=== PATIENT | male | born 1955 | race Caucasian/White ===

== ENCOUNTER 2020-06-17 13:07 | Outpatient (REF) | payer MEDICARE, OTHER, SELFPAY ==
[2020-06-17 14:19] LABS: Hematocrit 45.3 % (42-52); Hemoglobin 14.7 g/dl (14.0-18.0); Mean Corpuscular HGB Conc 32.5 g/dl (31.0-36.0); Mean Corpuscular Hemoglobin 30.7 pg (27.0-33.0); Mean Corpuscular Volume 94.6 fL (80-98); Mean Platelet Volume 9.6 fL (9.4-12.4); Platelet Count 186 X10*3/uL (160-400); Red Blood Count 4.79 X10*6/uL (4.60-5.80); Red Cell Distribution Width 12.6 % (11.0-16.0); White Blood Count 6.5 X10*3/uL (4.8-10.8)
[2020-06-17 14:57] LABS: Alanine Aminotransferase 18 U/L (0-40); Alkaline Phosphatase 77 U/L (39-117); Anion Gap 15 (12-20); Aspartate Amino Transferase 19 U/L (5-37); Bilirubin Direct 0.2 mg/dL (0.0-0.5); Bilirubin Total 0.6 mg/dL (0.0-1.0); Blood Urea Nitrogen 24 mg/dL (9-16); Calcium 8.4 mg/dL (8.4-10.2); Carbon Dioxide 22 mmol/L (22-29); Chloride 106 mmol/L (96-108); Cholesterol 170 mg/dL; Estimated Glomerular Filt Rate > 60; Glucose Random 70 mg/dL (60-115); HDL Cholesterol 43 mg/dL; LDL Cholesterol Calculated 79 mg/dl; Potassium 4.3 mmol/l (3.3-5.1); Sodium 139 mmol/L (135-145); Total Protein 7.1 g/dL (6.5-8.0); Triglycerides 242 mg/dL
[2020-06-17 14:59] LABS: Estimated Average Glucose 123 mg/dL; Hemoglobin A1c % 5.9 %
[2020-06-17 15:04] LABS: Thyroid Stimulating Hormone 2.65 uIU/mL (0.32-4.0)
[2020-06-17 15:28] LABS: Folate 14.8 ng/mL (> or = 4.0); Vitamin B12 489 pg/mL (200-900)
[2020-06-20 21:37] LABS: Vitamin D 25-OH, D2 <4 ng/mL; Vitamin D 25-OH, D3 23 ng/mL; Vitamin D 25-OH, Total 23 ng/mL (30-100)
== END 2020-06-17 13:08 | disposition home or self-care (01) ==
LOC: HO.LAB 13:07
PROVIDERS: Visit Provider Internal Medicine
DX: E11.9 Type 2 diabetes mellitus without complications (principal)
CPT/HCPCS: 36415; 80048; 80061; 80076; 82306; 82607; 82746; 83036; 84443; 85027

== ENCOUNTER 2021-05-31 09:14 | Outpatient (REF) | payer MEDICARE, OTHER, SELFPAY ==
[2021-05-31 09:52] LABS: Estimated Average Glucose 126 mg/dL
[2021-05-31 09:58] LABS: Appearance Urine CLEAR; Color Urine YELLOW; Glucose Urine UA NEG (NEG); Leukocyte Esterase Urine NEG (NEG); Nitrite Urine NEG (NEG); PH 5.5 (5.0-8.0); Specific Gravity - Urine 1.025 (1.005-1.025); Urine Blood NEG (NEG); Urine Ketones NEG (NEG); Urine Protein NEG (NEG-TRACE)
[2021-05-31 10:30] LABS: Alanine Aminotransferase 23 U/L (0-40); Albumin Level 3.9 g/dL (3.5-5.0); Alkaline Phosphatase 70 U/L (39-117); Anion Gap 9 (12-20); Aspartate Amino Transferase 16 U/L (5-37); Bilirubin Direct 0.3 mg/dL (0.0-0.5); Bilirubin Total 0.5 mg/dL (0.0-1.0); Blood Urea Nitrogen 23 mg/dL (9-16); Calcium 9.1 mg/dL (8.4-10.2); Carbon Dioxide 29 mmol/L (22-29); Chloride 107 mmol/L (96-108); Cholesterol 177 mg/dL; Estimated Glomerular Filt Rate > 60; Glucose Random 126 mg/dL (60-115); HDL Cholesterol 45 mg/dL; LDL Cholesterol Calculated 100 mg/dl; Potassium 4.8 mmol/L (3.3-5.1); Sodium 140 mmol/L (135-145); Total Protein 7.1 g/dL (6.5-8.0); Triglycerides 162 mg/dL
[2021-05-31 10:35] LABS: Creatinine Urine 215.46 mg/dL; Microalbum/Creatinine Ratio Ur 8.8 ug/mg cr
[2021-05-31 10:44] LABS: Thyroid Stimulating Hormone 2.45 uIU/mL (0.32-4.0)
== END 2021-05-31 09:15 | disposition home or self-care (01) ==
LOC: HO.LAB 09:14
PROVIDERS: PCP Internal Medicine; Visit Provider Internal Medicine
DX: E11.9 Type 2 diabetes mellitus without complications (principal); F41.1 Generalized anxiety disorder
CPT/HCPCS: 36415; 80048; 80061; 80076; 81003; 82043; 83036; 84443

== ENCOUNTER 2021-11-30 08:40 | Outpatient (REF) | payer MEDICARE, OTHER, SELFPAY ==
[2021-11-30 09:33] LABS: Hematocrit 43.5 % (42.0-52.0); Hemoglobin 14.2 g/dl (14.0-18.0); Mean Corpuscular HGB Conc 32.6 g/dl (31.0-36.0); Mean Corpuscular Hemoglobin 30.1 pg (27.0-33.0); Mean Corpuscular Volume 92.4 fL (80.0-98.0); Mean Platelet Volume 9.4 fL (9.4-12.4); Platelet Count 174 X10*3/uL (160-400); Red Blood Count 4.71 X10*6/uL (4.60-5.80); Red Cell Distribution Width 12.6 % (11.0-16.0); White Blood Count 6.2 X10*3/uL (4.8-10.8)
[2021-11-30 10:09] LABS: Alanine Aminotransferase 19 U/L (0-40); Albumin Level 3.8 g/dL (3.5-5.0); Alkaline Phosphatase 72 U/L (39-117); Anion Gap 11 (12-20); Aspartate Amino Transferase 17 U/L (5-37); Bilirubin Direct 0.2 mg/dL (0.0-0.5); Bilirubin Total 0.4 mg/dL (0.0-1.0); Blood Urea Nitrogen 22 mg/dL (9-16); Calcium 8.1 mg/dL (8.4-10.2); Carbon Dioxide 22 mmol/L (22-29); Chloride 111 mmol/L (96-108); Cholesterol 153 mg/dL; Estimated Glomerular Filt Rate > 60; Glucose Random 114 mg/dL (60-115); HDL Cholesterol 43 mg/dL; LDL Cholesterol Calculated 89 mg/dl; Potassium 4.1 mmol/L (3.3-5.1); Sodium 140 mmol/L (135-145); Total Protein 6.6 g/dL (6.5-8.0); Triglycerides 108 mg/dL
[2021-11-30 10:17] LABS: Prostate Specific Antigen Scr 1.89 ng/mL (<0.05-4.0)
== END 2021-11-30 08:41 | disposition home or self-care (01) ==
LOC: HO.LAB 08:40
PROVIDERS: PCP Internal Medicine; Visit Provider Internal Medicine
DX: Z12.5 Encounter for screening for malignant neoplasm of prostate (principal); E11.9 Type 2 diabetes mellitus without complications
CPT/HCPCS: 36415; 80048; 80061; 80076; 84153; 85027

== ENCOUNTER 2021-12-13 09:09 | Outpatient (REF) | payer MEDICARE, OTHER, SELFPAY ==
[2021-12-13 11:53] LABS: Creatinine Urine 148.42 mg/dL; Microalbum/Creatinine Ratio Ur 3.3 ug/mg cr
== END 2021-12-13 09:10 | disposition home or self-care (01) ==
LOC: HO.LAB 09:09
PROVIDERS: PCP Internal Medicine; Visit Provider Internal Medicine
DX: E11.9 Type 2 diabetes mellitus without complications (principal)
CPT/HCPCS: 82043

== ENCOUNTER 2023-03-02 13:58 | Outpatient (AMB) | payer MEDICARE, OTHER, SELFPAY ==
--- NOTE | 2023-03-02 14:05 | A.OFFPC_ITS ---
Vital Signs 03/02/23 14:06 Height 5 ft 10 in Weight 195 lb 8 oz BMI 28.0 BP 128/72 Blood Pressure Location Lt brachial Position Sitting Pulse 68 Pulse Source Pulse Oximeter Pulse Oximetry (%) 97 Oxygen Delivery Method Room Air Intake Visit Reasons: DM, CORINNE f/u Intake Note: Patient is here to follow up on DM, CORINNE. Spinning Bath Patroller Required: No Drier And Pulverizer Tender: Not Required per policy Accompanied by: Self / Same As Patient Allergies No Known Allergies Allergy (Mild, Verified 03/02/23 14:39) NKA Medication List - Last Reconciled 03/02/23 by Jung Freed MD metformin 500 mg PO DAILY sertraline 150 mg (1.5 x 100 mg) PO DAILY Tobacco use date assessed: 03/02/23 Fall risk assessment: No Falls in past year Last assessed Fall Risk: 03/02/23 Dental Screening Dental Screen Date: 03/02/23 Did you have a dental visit in the last 12 months?: Yes Did you have a dental problem in the last 6 months where you did not have access to dental care?: No Was dental information given to patient?: Patient has dentist HPI DM, CORINNE f/u HPI Details Patient presents to discuss chronic medical conditions. The last A1c was 6.2 . Compliant with medications, diet and exercise. Reports no symptoms of headache, blurred vision or increased frequency of urination. No symptoms of fatigue. No nausea or vomiting. Patient is able to do all activities of daily living. He is able to drive at night. No urinary incontinence. Requesting a prescription of Viagra. [facility] Medical History Type 2 diabetes mellitus without complications Generalized anxiety disorder Surgical History No pertinent past surgical history Family History Father No problems noted. Mother No problems noted. Sister No problems noted. Social History Housing: House Alcohol intake: current Alcohol intake frequency: a few times a week Patient Tobacco Use Status: Never used Tobacco e-Cigarette/Vaping Use: Never Used Second Hand Smoke Exposure: No service: No Current occupational status: retired Cognitive needs: No Hearing needs: No Vision needs: Yes (reading glasses) Questionnaire PHQ-9 Over the last 2 weeks, how often have you been bothered by any of the following problems? 1. Little interest or pleasure in doing things: not at all 2. Feeling down, depressed, or hopeless: not at all 3. Trouble falling or staying asleep, or sleeping too much: not at all 4. Feeling tired or having little energy: not at all 5. Poor appetite or overeating: not at all 6. Feeling bad about yourself - or that you are a failure or have let yourself or your family down: not at all 7. Trouble concentrating on things, such as reading the newspaper or watching television: not at all 8. Moving or speaking so slowly that other people could have noticed. Or the opposite - being so fidgety or restless that you have been moving around a lot more than usual: not at all 9. Thoughts that you would be better off or of hurting yourself in some way: not at all Total score: 0 Depression Screening Interpretation: Negative Depression Screening Done: Yes Source: Developed by Drs. Peter Casas, Joslyn Aparicio, Harmeet Coleman and colleagues, with an educational lester from [employer]. Thrive Questionnaire Date Thrive assessed: 03/02/23 I am a: Patient What is your living situation today?: I have a steady place to live Within the past 12 months, did the food you bought not last and you didn't have the money to get more?: Never true Within the past 12 months, did you worry whether your food would run out before you got money to buy more?: Never true Do you have trouble paying for medicines?: No Do you have trouble getting transportation to medical appointments?: No Do you have trouble paying your heating and electricity bill?: No Do you have trouble taking care of your child, family member or friend?: No Do you have trouble with day-to-day activities such as bathing, preparing meals, shopping, managing finances, etc.?: No Are you currently unemployed and looking for a job?: No Are you interested in more education?: No Currently or been in a relationship where the following occur: no concerns reported AUDIT C Alcohol Use Questionnaire (AUDIT-C) 1. How often do you have a drink containing alcohol?: 2-4 times a month 2. How many drinks containing alcohol do you have on a typical day when you are drinking?: 1 or 2 Total Score: 2 CORINNE-7 AMB Questionnaire CORINNE-7 Date CORINNE - 7 assessed: 03/02/23 Feeling nervous, anxious, or on edge: 0 = Not at all Not being able to stop or control worryin = Not at all Worrying too much about different things: 0 = Not at all Trouble relaxin = Not at all Being so restless that it is hard to sit still: 0 = Not at all Becoming easily annoyed or irritable: 0 = Not at all Feeling afraid as if something awful might happen: 0 = Not at all Total CORINNE-7 score (0-4 normal; 5-9 mild; 10-14 moderate; 15-21 severe): 0 Source: Developed by Drs. Peter Casas, Joslyn Aparicio, Harmeet Coleman and colleagues, with an educational lester from [employer]. Physical exam (Primary Care) Vital Signs: Last Vital Signs Pulse 68 03/02/23 14:06 BP 128/72 03/02/23 14:06 Pulse Ox 97 03/02/23 14:06 Oxygen Delivery Method Room Air 03/02/23 14:06 Care Plan Goal for BP management: Blood pressure is in range. Continue current medications. BMI result Body Mass Index 28.0 Tobacco/Smoking Status: Tobacco use Status Tobacco use date assessed 03/02/23 03/02/23 14:16 Patient Tobacco Use Status Never used Tobacco 03/02/23 14:16 e-Cigarette/Vaping Use Never Used 03/02/23 14:16 PHQ-9: PHQ-9 Score PHQ-9: Total score 0 03/02/23 14:28 Depression Screening Interpretation: Negative Thrive Assessment: Date of Thrive Assessment Date Thrive assessed 03/02/23 03/02/23 14:16 Currently or been in a relationship where the following occur: no concerns reported Advance Care Planning discussion: Exists, not on file Date of discussion: 03/02/23 Who was present: Patient Forms completed: Health Care Proxy Time spent: 1-15 minutes, not on file Const General: cooperative and healthy appearing Nutritional Appearance: well nourished Orientation/consciousness: patient oriented x3 Limitations: no limitations HENMT Head: Yes normal to inspection Eyes General: appearance normal, both eyes and all related structures Neck Neck: Yes normal visual inspection Chest Chest palpation & inspection: normal palpation of entire chest wall Resp Effort & Inspection: normal respiratory effort Neuro General: patient oriented x3 Results AMB Hemoglobin A1c AMB Hemoglobin A1c 6.2 % Last Edit by MIGUELITO Atwood on 03/02/23 14:29 Results Reviewed Results Reviewed: Laboratory Last Values Hgb A1c (Clinic) 6.2 % (4.0-6.0) H 03/02/23 14:04 Assessment and Plan Assessment & Plan (1) Type 2 diabetes mellitus without complications: Code(s): E11.9 - Type 2 diabetes mellitus without complications Plan: Blood work has been ordered. A1c is in range. Continue metformin at same dosage. (2) Generalized anxiety disorder: Code(s): F41.1 - Generalized anxiety disorder Plan: Condition is stable. Continue sertraline at the same dosage. (3) Erectile dysfunction: Code(s): N52.9 - Male erectile dysfunction, unspecified Plan: Prescription for Viagra ordered. Orders: Orders AMB Hemoglobin A1c Today E11.9 - Type 2 diabetes mellitus without complications Medications: Refilled sertraline 150 mg (1.5 x 100 mg) PO DAILY 135 tabs 1RF Coding Level of Care Code Est Pt Level 4 (98147) Diagnoses Type 2 diabetes mellitus without complications E11.9 Generalized anxiety disorder F41.1 Erectile dysfunction N52.9 Additional Codes Vital Signs *Quality* - Advance Care Planning discussion: Exists, not on file ([id number]) Vital Signs *Quality* - Time spent: 1-15 minutes, not on file ([id number])
[2023-03-02 14:06] VITALS: BP 128/72; PULSE 68; O2SAT 97; BMI 28.0
== END 2023-03-02 14:36 | disposition home or self-care (01) ==
PROVIDERS: PCP Internal Medicine; Visit Provider Internal Medicine
DX: E11.9 Type 2 diabetes mellitus without complications (principal); F41.1 Generalized anxiety disorder; N52.9 Male erectile dysfunction, unspecified; Z00.00 Encounter for general adult medical examination without abnormal findings
CPT/HCPCS: 1123F; 1124F; 83036; 99214

== ENCOUNTER 2023-03-03 08:58 | Outpatient (REF) | payer MEDICARE, OTHER, SELFPAY ==
[2023-03-03 10:47] LABS: Appearance Urine Clear; Color Urine Yellow; Glucose Urine UA Negative (Negative); Leukocyte Esterase Urine Trace (Negative); Nitrite Urine Negative (Negative); PH 5.5 (5.0-9.0); Specific Gravity - Urine 1.025 (1.005-1.025); UMIC TRIGGER UA YES; Urine Blood Negative (Negative); Urine Ketones Negative (Negative); Urine Protein Negative (Neg-Trace)
[2023-03-03 10:51] LABS: Bacteria Urine None Seen (None Seen); Hyaline Casts Urine 0-2 /LPF (0-2); RBC Urine 0-2 /HPF (0-2); Squamous Epithelial Cell Urine 0-2 /HPF (0-2); WBC Urine 0-5 /HPF (0-5)
[2023-03-03 11:57] LABS: Hematocrit 45.3 % (42.0-52.0); Hemoglobin 14.6 g/dl (14.0-18.0); Mean Corpuscular HGB Conc 32.2 g/dl (31.0-36.0); Mean Corpuscular Hemoglobin 30.1 pg (27.0-33.0); Mean Corpuscular Volume 93.4 fL (80.0-98.0); Mean Platelet Volume 9.7 fL (9.4-12.4); Platelet Count 182 X10*3/uL (160-400); Red Blood Count 4.85 X10*6/uL (4.60-5.80); Red Cell Distribution Width 12.6 % (11.0-16.0); White Blood Count 5.5 X10*3/uL (4.8-10.8)
[2023-03-03 12:22] LABS: Alanine Aminotransferase 17 U/L (0-40); Albumin Level 3.8 g/dL (3.5-5.0); Alkaline Phosphatase 73 U/L (39-117); Anion Gap 11 (12-20); Aspartate Amino Transferase 18 U/L (5-37); Bilirubin Direct 0.2 mg/dL (0.0-0.5); Bilirubin Total 0.6 mg/dL (0.0-1.0); Blood Urea Nitrogen 20 mg/dL (9-16); Calcium 8.8 mg/dL (8.4-10.2); Carbon Dioxide 25 mmol/L (22-29); Chloride 110 mmol/L (96-108); Estimated Glomerular Filt Rate > 60; Glucose Random 122 mg/dL (60-115); Potassium 4.3 mmol/L (3.3-5.1); Sodium 142 mmol/L (135-145); Total Protein 7.1 g/dL (6.5-8.0)
[2023-03-03 12:24] LABS: Creatinine Urine 216.26 mg/dL; Microalbum/Creatinine Ratio Ur 6.4 ug/mg cr (<30)
[2023-03-03 12:30] LABS: Thyroid Stimulating Hormone 3.46 uIU/mL (0.32-4.0)
[2023-03-03 12:36] LABS: Prostate Specific Antigen Scr 1.63 ng/mL (<0.05-4.0)
== END 2023-03-03 08:59 | disposition home or self-care (01) ==
LOC: HO.10HDL 08:58
PROVIDERS: Visit Provider Internal Medicine
DX: E11.9 Type 2 diabetes mellitus without complications (principal); N52.9 Male erectile dysfunction, unspecified; Z12.5 Encounter for screening for malignant neoplasm of prostate
CPT/HCPCS: 36415; 80048; 80076; 81001; 82043; 82570; 84153; 84443; 85027

== ENCOUNTER 2023-09-07 14:00 | Outpatient (AMB) | payer MEDICARE, OTHER, SELFPAY ==
--- NOTE | 2023-09-07 14:14 | MHC.PC.OV ---
Vital Signs 09/07/23 14:16 Height 5 ft 10 in Weight 200 lb 2 oz BMI 28.7 BP 112/68 Blood Pressure Location Rt brachial Position Sitting Pulse 60 Pulse Source Pulse Oximeter Pulse Oximetry (%) 99 Oxygen Delivery Method Room Air Intake Visit Reasons: 6 month f/u Intake Note: Patient is here to follow up on DM, ED,CORINNE . Airframe And Powerplant Mechanic Required: No Ocean Import Representative: Not Required per policy Accompanied by: Self / Same As Patient Allergies No Known Allergies Allergy (Mild, Verified 09/07/23 14:45) NKA Medication List - Last Reconciled 09/07/23 by Jung Freed MD metformin 500 mg PO DAILY multivitamin (Daily Multi-Vitamin tablet) 1 tab PO DAILY sertraline 150 mg (1.5 x 100 mg) PO DAILY sildenafil (Viagra) 100 mg PO DAILY PRN Tobacco use date assessed: 09/07/23 Fall risk assessment: No Falls in past year Last assessed Fall Risk: 09/07/23 Dental Screening Dental Screen Date: 09/07/23 Did you have a dental visit in the last 12 months?: Yes Did you have a dental problem in the last 6 months where you did not have access to dental care?: No Was dental information given to patient?: Patient has dentist HPI 6 month f/u HPI Details 68-year-old male presents to the office to discuss his chronic medical conditions. Patient is reporting he is at baseline state of health. Able to function and do all activities of daily living. Compliant with medications and following a healthy diet and exercise regimen. He sleeps well at night, no urinary incontinence. Continues to drive and do all his financial activities. No history of fall. Anxiety symptoms are stable. [facility] Medical History Type 2 diabetes mellitus without complications Generalized anxiety disorder Surgical History History of removal of skin mole Family History Father No problems noted. Mother No problems noted. Sister No problems noted. Social History Housing: House Alcohol intake: current Alcohol intake frequency: a few times a week Patient Tobacco Use Status: Never used Tobacco e-Cigarette/Vaping Use: Never Used Second Hand Smoke Exposure: No service: No Current occupational status: retired Cognitive needs: No Hearing needs: No Vision needs: Yes (reading glasses) Questionnaire PHQ-9 Over the last 2 weeks, how often have you been bothered by any of the following problems? 1. Little interest or pleasure in doing things: not at all 2. Feeling down, depressed, or hopeless: not at all 3. Trouble falling or staying asleep, or sleeping too much: not at all 4. Feeling tired or having little energy: not at all 5. Poor appetite or overeating: not at all 6. Feeling bad about yourself - or that you are a failure or have let yourself or your family down: not at all 7. Trouble concentrating on things, such as reading the newspaper or watching television: not at all 8. Moving or speaking so slowly that other people could have noticed. Or the opposite - being so fidgety or restless that you have been moving around a lot more than usual: not at all 9. Thoughts that you would be better off or of hurting yourself in some way: not at all Total score: 0 Depression Screening Interpretation: Negative Depression Screening Done: Yes Source: Developed by Drs. Peter Casas, Joslyn Aparicio, Harmeet Colmean and colleagues, with an educational lester from [employer]. Thrive Questionnaire Date Thrive assessed: 09/07/23 I am a: Patient What is your living situation today?: I have a steady place to live Within the past 12 months, did the food you bought not last and you didn't have the money to get more?: Never true Within the past 12 months, did you worry whether your food would run out before you got money to buy more?: Never true Do you have trouble paying for medicines?: No Do you have trouble getting transportation to medical appointments?: No Do you have trouble paying your heating and electricity bill?: No Do you have trouble taking care of your child, family member or friend?: No Do you have trouble with day-to-day activities such as bathing, preparing meals, shopping, managing finances, etc.?: No Are you currently unemployed and looking for a job?: No Are you interested in more education?: No Currently or been in a relationship where the following occur: no concerns reported THRIVE Score: 0 AUDIT C Alcohol Use Questionnaire (AUDIT-C) 1. How often do you have a drink containing alcohol?: 2-4 times a month 2. How many drinks containing alcohol do you have on a typical day when you are drinking?: 1 or 2 Total Score: 2 CORINNE-7 AMB Questionnaire CORINNE-7 Date CORINNE - 7 assessed: 09/07/23 Feeling nervous, anxious, or on edge: 0 = Not at all Not being able to stop or control worryin = Not at all Worrying too much about different things: 0 = Not at all Trouble relaxin = Not at all Being so restless that it is hard to sit still: 0 = Not at all Becoming easily annoyed or irritable: 0 = Not at all Feeling afraid as if something awful might happen: 0 = Not at all Total CORINNE-7 score (0-4 normal; 5-9 mild; 10-14 moderate; 15-21 severe): 0 Source: Developed by Drs. Peter Casas, Joslyn Aparicio, Harmeet Coleman and colleagues, with an educational lester from [employer]. Physical exam (Primary Care) Vital Signs: Last Vital Signs Pulse 60 09/07/23 14:16 BP 112/68 09/07/23 14:16 Pulse Ox 99 09/07/23 14:16 Oxygen Delivery Method Room Air 09/07/23 14:16 Care Plan Goal for BP management: Blood pressure is in range. BMI result Body Mass Index 28.7 Tobacco/Smoking Status: Tobacco use Status Tobacco use date assessed 09/07/23 09/07/23 14:24 Patient Tobacco Use Status Never used Tobacco 09/07/23 14:24 e-Cigarette/Vaping Use Never Used 09/07/23 14:24 PHQ-9: PHQ-9 Score PHQ-9: Total score 0 09/07/23 14:24 Depression Screening Interpretation: Negative Thrive Assessment: Date of Thrive Assessment Date Thrive assessed 09/07/23 09/07/23 14:24 Currently or been in a relationship where the following occur: no concerns reported Const General: cooperative and healthy appearing Nutritional Appearance: well nourished Orientation/consciousness: patient oriented x3 Limitations: no limitations HENMT Head: Yes normal to inspection Eyes General: appearance normal, both eyes and all related structures Neck Neck: Yes normal visual inspection Chest Chest palpation & inspection: normal palpation of entire chest wall Resp Effort & Inspection: normal respiratory effort Neuro General: patient oriented x3 Results AMB Hemoglobin A1c AMB Hemoglobin A1c 6.1 % Last Edit by MIGUELITO Atwood on 09/07/23 14:26 Results Reviewed Results Reviewed: Laboratory Last Values Hgb A1c (Clinic) 6.1 % (4.0-6.0) H 09/07/23 14:14 Assessment and Plan Assessment & Plan (1) Generalized anxiety disorder: Code(s): F41.1 - Generalized anxiety disorder Plan: Condition is stable. Continue sertraline at the same dosage. (2) Type 2 diabetes mellitus without complications: Code(s): E11.9 - Type 2 diabetes mellitus without complications Plan: A1c is in range. Continue metformin at same dosage. Orders: Orders Lipid Panel Today E11.9 - Type 2 diabetes mellitus without complications, F41.1 - Generalized anxiety disorder Liver Panel Today E11.9 - Type 2 diabetes mellitus without complications, F41.1 - Generalized anxiety disorder AMB Hemoglobin A1c Today E11.9 - Type 2 diabetes mellitus without complications Basic Metabolic Panel Today E11.9 - Type 2 diabetes mellitus without complications, F41.1 - Generalized anxiety disorder Thyroid Stimulating Hormone Today E11.9 - Type 2 diabetes mellitus without complications, F41.1 - Generalized anxiety disorder Prostate Specific Antigen Scr Today E11.9 - Type 2 diabetes mellitus without complications, F41.1 - Generalized anxiety disorder UA and rflx microscopic Today E11.9 - Type 2 diabetes mellitus without complications, F41.1 - Generalized anxiety disorder Coding Level of Care Code Est Pt Level 4 (13171) Diagnoses Generalized anxiety disorder F41.1 Type 2 diabetes mellitus without complications E11.9
[2023-09-07 14:16] VITALS: BP 112/68; PULSE 60; O2SAT 99; BMI 28.7
== END 2023-09-07 14:48 | disposition home or self-care (01) ==
PROVIDERS: PCP Internal Medicine; Visit Provider Internal Medicine
DX: F41.1 Generalized anxiety disorder (principal); E11.9 Type 2 diabetes mellitus without complications
CPT/HCPCS: 83036; 99214

== ENCOUNTER 2023-09-08 09:02 | Outpatient (REF) | payer MEDICARE, OTHER, SELFPAY ==
[2023-09-08 10:45] LABS: Appearance Urine Clear; Color Urine Yellow; Glucose Urine UA Negative (Negative); Leukocyte Esterase Urine Negative (Negative); Nitrite Urine Negative (Negative); PH 5.5 (5.0-9.0); Urine Blood Negative (Negative); Urine Ketones Negative (Negative); Urine Protein Negative (Neg-Trace)
[2023-09-08 11:08] LABS: Alanine Aminotransferase 22 U/L (0-40); Albumin Level 3.9 g/dL (3.5-5.0); Alkaline Phosphatase 72 U/L (39-117); Anion Gap 10 (12-20); Aspartate Amino Transferase 20 U/L (5-37); Bilirubin Direct 0.3 mg/dL (0.0-0.5); Bilirubin Total 0.5 mg/dL (0.0-1.0); Blood Urea Nitrogen 23 mg/dL (9-16); Calcium 8.9 mg/dL (8.4-10.2); Carbon Dioxide 25 mmol/L (22-29); Chloride 110 mmol/L (96-108); Cholesterol 173 mg/dL (<200); Estimated Glomerular Filt Rate > 60; Glucose Random 128 mg/dL (60-115); HDL Cholesterol 45 mg/dL (>40); LDL Cholesterol Calculated 99 mg/dL (<100); Sodium 141 mmol/L (135-145); Total Protein 7.3 g/dL (6.5-8.0); Triglycerides 147 mg/dL (<150)
[2023-09-08 13:51] LABS: Thyroid Stimulating Hormone 2.55 uIU/mL (0.32-4.0)
[2023-09-08 14:47] LABS: Prostate Specific Antigen Scr 1.79 ng/mL (<0.05-4.0)
== END 2023-09-08 09:03 | disposition home or self-care (01) ==
LOC: HO.10HDL 09:02
PROVIDERS: Visit Provider Internal Medicine
DX: Z12.5 Encounter for screening for malignant neoplasm of prostate (principal); E11.9 Type 2 diabetes mellitus without complications; F41.1 Generalized anxiety disorder
CPT/HCPCS: 36415; 80048; 80061; 80076; 81003; 84153; 84443

== ENCOUNTER 2024-03-13 09:03 | Outpatient (AMB) | payer MEDICARE, OTHER, SELFPAY ==
--- NOTE | 2024-03-13 09:07 | MHC.PC.OV ---
Vital Signs 03/13/24 09:08 Height 5 ft 10 in Weight 192 lb 2 oz BMI 27.6 BP 110/72 Blood Pressure Location Lt brachial Position Sitting Pulse 65 Pulse Source Pulse Oximeter Pulse Oximetry (%) 96 Oxygen Delivery Method Room Air Intake Visit Reasons: 6MOF\U Intake Note: Patient is here to follow up on DM, CORINNE. Meeting Specialist Required: No Per Diem Interpreter: Not Required per policy Accompanied by: Self / Same As Patient Allergies No Known Allergies Allergy (Mild, Verified 03/13/24 09:08) NKA Tobacco use date assessed: 03/13/24 Fall risk assessment: No Falls in past year Last assessed Fall Risk: 03/13/24 Dental Screening Dental Screen Date: 09/07/23 HPI 6MOF\U HPI Details 68-year-old male presents to the office to discuss his chronic medical conditions. Patient is at baseline state of health. Compliant with all his medications. Does not check his blood sugars often at home. Patient and his traveled frequently. Has received his flu, COVID vaccine. [facility] Medical History Type 2 diabetes mellitus without complications Generalized anxiety disorder Surgical History History of colonoscopy (~10/20/18) History of removal of skin mole Family History Father No problems noted. Mother No problems noted. Sister No problems noted. Social History Housing: House Alcohol intake: current Alcohol intake frequency: a few times a week Patient Tobacco Use Status: Never used Tobacco e-Cigarette/Vaping Use: Never Used Second Hand Smoke Exposure: No service: No Current occupational status: retired Cognitive needs: No Hearing needs: No Vision needs: Yes (reading glasses) Questionnaire Thrive Questionnaire Date Thrive assessed: 09/07/23 AUDIT C Alcohol Use Questionnaire (AUDIT-C) 2. How many drinks containing alcohol do you have on a typical day when you are drinking?: 1 or 2 3. How often do you have six or more drinks on one occasion?: Never Total Score: 0 CORINNE-7 AMB Questionnaire CORINNE-7 Date CORINNE - 7 assessed: 09/07/23 Source: Developed by Drs. Peter Casas, Joslyn Aparicio, Harmeet Coleman and colleagues, with an educational lester from [employer]. Physical exam (Primary Care) Vital Signs: Last Vital Signs Pulse 65 03/13/24 09:08 BP 110/72 03/13/24 09:08 Pulse Ox 96 03/13/24 09:08 Oxygen Delivery Method Room Air 03/13/24 09:08 Care Plan Goal for BP management: Blood pressure is in range. BMI result Body Mass Index 27.6 Tobacco/Smoking Status: Tobacco use Status Tobacco use date assessed 03/13/24 03/13/24 09:14 Patient Tobacco Use Status Never used Tobacco 03/13/24 09:14 e-Cigarette/Vaping Use Never Used 03/13/24 09:14 Thrive Assessment: Date of Thrive Assessment Date Thrive assessed 09/07/23 03/13/24 09:14 Const General: cooperative and healthy appearing Nutritional Appearance: well nourished Orientation/consciousness: patient oriented x3 Limitations: no limitations HENMT Head: Yes normal to inspection Eyes General: appearance normal, both eyes and all related structures Neck Neck: Yes normal visual inspection Chest Chest palpation & inspection: normal palpation of entire chest wall Resp Effort & Inspection: normal respiratory effort Neuro General: patient oriented x3 Results AMB Hemoglobin A1c AMB Hemoglobin A1c 6.0 % Last Edit by MIGUELITO Atwood on 03/13/24 09:26 Coding Level of Care Code Est Pt Level 4 (82312) Diagnoses Generalized anxiety disorder F41.1 Type 2 diabetes mellitus without complications E11.9 Assessment & Plan Assessment & Plan (1) Generalized anxiety disorder: Code(s): F41.1 - Generalized anxiety disorder Category: Medical Plan: Condition is stable. (2) Type 2 diabetes mellitus without complications: Code(s): E11.9 - Type 2 diabetes mellitus without complications Category: Medical Plan: Blood work has been ordered. We will continue medications at same dosage. Patient also sees an maintenance department technician and cashiers supervisor in addition. Orders: Orders Complete Blood Count no Diff Today E11.9 - Type 2 diabetes mellitus without complications, F41.1 - Generalized anxiety disorder Lipid Panel Today E11.9 - Type 2 diabetes mellitus without complications, F41.1 - Generalized anxiety disorder Liver Panel Today E11.9 - Type 2 diabetes mellitus without complications, F41.1 - Generalized anxiety disorder Microalbumin, Random (w Creat) Today E11.9 - Type 2 diabetes mellitus without complications, F41.1 - Generalized anxiety disorder AMB Hemoglobin A1c Today E11.9 - Type 2 diabetes mellitus without complications Basic Metabolic Panel Today E11.9 - Type 2 diabetes mellitus without complications, F41.1 - Generalized anxiety disorder Thyroid Stimulating Hormone Today E11.9 - Type 2 diabetes mellitus without complications, F41.1 - Generalized anxiety disorder UA and rflx microscopic Today E11.9 - Type 2 diabetes mellitus without complications, F41.1 - Generalized anxiety disorder Prostate Specific Antigen Scr Today E11.9 - Type 2 diabetes mellitus without complications, F41.1 - Generalized anxiety disorder Hemoglobin A1c Today E11.9 - Type 2 diabetes mellitus without complications, F41.1 - Generalized anxiety disorder
[2024-03-13 09:08] VITALS: BP 110/72; PULSE 65; O2SAT 96; BMI 27.6
== END 2024-03-13 09:33 | disposition home or self-care (01) ==
PROVIDERS: PCP Internal Medicine; Visit Provider Internal Medicine
DX: F41.1 Generalized anxiety disorder (principal); E11.9 Type 2 diabetes mellitus without complications

== ENCOUNTER → 2024-03-13 09:03 | Outpatient (BNVA) | payer MEDICARE, OTHER, SELFPAY | PROVIDERS: PCP Internal Medicine; Visit Provider Internal Medicine | DX: E11.9 Type 2 diabetes mellitus without complications (principal); F41.1 Generalized anxiety disorder | CPT/HCPCS: 83036; 99212 ==

== ENCOUNTER 2024-03-14 08:16 | Outpatient (REF) | payer MEDICARE, OTHER, SELFPAY ==
[2024-03-14 10:50] LABS: Hemoglobin 14.7 g/dl (14.0-18.0); Mean Corpuscular HGB Conc 33.4 g/dl (31.0-36.0); Mean Corpuscular Hemoglobin 30.8 pg (27.0-33.0); Mean Corpuscular Volume 92.1 fL (80.0-98.0); Mean Platelet Volume 9.3 fL (9.4-12.4); Platelet Count 185 X10*3/uL (160-400); Red Blood Count 4.78 X10*6/uL (4.60-5.80); Red Cell Distribution Width 13.1 % (11.0-16.0); White Blood Count 6.3 X10*3/uL (4.8-10.8)
[2024-03-14 10:52] LABS: Appearance Urine Clear; Color Urine Yellow; Glucose Urine UA Negative (Negative); Leukocyte Esterase Urine Negative (Negative); Nitrite Urine Negative (Negative); PH 5.5 (5.0-9.0); Specific Gravity - Urine 1.025 (1.005-1.025); Urine Blood Negative (Negative); Urine Ketones Negative (Negative); Urine Protein Negative (Neg-Trace)
[2024-03-14 11:08] LABS: Alanine Aminotransferase 22 U/L (0-40); Albumin Level 3.9 g/dL (3.5-5.0); Alkaline Phosphatase 62 U/L (39-117); Anion Gap 8 (12-20); Aspartate Amino Transferase 26 U/L (5-37); Bilirubin Direct 0.2 mg/dL (0.0-0.5); Bilirubin Total 0.6 mg/dL (0.0-1.0); Blood Urea Nitrogen 24 mg/dL (9-16); Calcium 8.5 mg/dL (8.4-10.2); Carbon Dioxide 26 mmol/L (22-29); Chloride 109 mmol/L (96-108); Cholesterol 143 mg/dL (<200); Estimated Average Glucose 123 mg/dL; Estimated Glomerular Filt Rate > 60; Glucose Random 125 mg/dL (60-115); HDL Cholesterol 41 mg/dL (>40); Hemoglobin A1C 151.8749 umol/L; Hemoglobin A1c % 5.9 % (<6.0); LDL Cholesterol Calculated 78 mg/dL (<100); Sodium 139 mmol/L (135-145); Total Hemoglobin (HGBA1C) 3703.2681 umol/L; Triglycerides 121 mg/dL (<150)
[2024-03-14 11:19] LABS: Prostate Specific Antigen Scr 2.29 ng/mL (<0.05-4.0)
[2024-03-14 11:24] LABS: Creatinine Urine 141.08 mg/dL; Microalbumin Urine < 5.0 mg/L
[2024-03-14 11:31] LABS: Thyroid Stimulating Hormone 2.93 uIU/mL (0.32-4.0)
== END 2024-03-14 08:17 | disposition home or self-care (01) ==
LOC: HO.10HDL 08:16
PROVIDERS: Visit Provider Internal Medicine
DX: E11.9 Type 2 diabetes mellitus without complications (principal); F41.1 Generalized anxiety disorder; Z12.5 Encounter for screening for malignant neoplasm of prostate
CPT/HCPCS: 36415; 80048; 80061; 80076; 81003; 82043; 82570; 83036; 84153; 84443; 85027

== ENCOUNTER 2024-12-12 10:07 | Outpatient (AMB) | payer MEDICARE, OTHER, SELFPAY ==
--- NOTE | 2024-12-12 10:15 | A.OFFPC_ITS ---
Vital Signs 12/12/24 10:16 Height 5 ft 10 in Weight 198 lb 8 oz BMI 28.5 BP 120/60 Blood Pressure Location Lt brachial Position Sitting Pulse 66 Pulse Source Pulse Oximeter Temp 97.1 F Temp Source Temporal Artery Scan Pulse Oximetry (%) 97 Oxygen Delivery Method Room Air Intake Visit Reasons: 6 month follow up Intake Note: Patient is here to follow up on DM. Lockstitch Front Maker Required: No Ornamenter Hand: Not Required per policy Accompanied by: Self / Same As Patient Allergies No Known Allergies Allergy (Mild, Verified 12/12/24 10:48) NKA Medication List - Last Reconciled 12/12/24 by Jung Freed MD calcium carbonate (Calcium 600) 600 mg PO DAILY cholecalciferol (vitamin D3) 10 mcg PO DAILY metformin 500 mg PO DAILY sertraline 150 mg (1.5 x 100 mg) PO DAILY sildenafil (Viagra) 100 mg PO DAILY PRN Tobacco use date assessed: 12/12/24 Fall risk assessment: No Falls in past year Last assessed Fall Risk: 12/12/24 Dental Screening Dental Screen Date: 12/12/24 Did you have a dental visit in the last 12 months?: Yes Did you have a dental problem in the last 6 months where you did not have access to dental care?: No Was dental information given to patient?: Patient has dentist [facility] Medical History Type 2 diabetes mellitus without complications Generalized anxiety disorder Surgical History History of colonoscopy (~10/20/18) History of removal of skin mole Family History Father No problems noted. Mother No problems noted. Sister No problems noted. Social History Housing: House Alcohol intake: current Alcohol intake frequency: a few times a week Patient Tobacco Use Status: Never used Tobacco e-Cigarette/Vaping Use: Never Used Second Hand Smoke Exposure: No service: No Current occupational status: retired Cognitive needs: No Hearing needs: No Vision needs: Yes (reading glasses) Questionnaire PHQ-9 Over the last 2 weeks, how often have you been bothered by any of the following problems? 1. Little interest or pleasure in doing things: not at all 2. Feeling down, depressed, or hopeless: not at all 3. Trouble falling or staying asleep, or sleeping too much: not at all 4. Feeling tired or having little energy: not at all 5. Poor appetite or overeating: not at all 6. Feeling bad about yourself - or that you are a failure or have let yourself or your family down: not at all 7. Trouble concentrating on things, such as reading the newspaper or watching television: not at all 8. Moving or speaking so slowly that other people could have noticed. Or the opposite - being so fidgety or restless that you have been moving around a lot more than usual: not at all 9. Thoughts that you would be better off or of hurting yourself in some way: not at all Total score: 0 Depression Screening Interpretation: Negative Depression Screening Done: Yes Source: Developed by Drs. Peter Casas, Joslyn Aparicio, Harmeet Coleman and colleagues, with an educational lester from [employer]. Thrive Questionnaire Date Thrive assessed: 12/06/24 I am a: Patient What is your living situation today?: I have a steady place to live Within the past 12 months, did the food you bought not last and you didn't have the money to get more?: Never true Within the past 12 months, did you worry whether your food would run out before you got money to buy more?: Never true Do you have trouble paying for medicines?: No Do you have trouble getting transportation to medical appointments?: No Do you have trouble paying your heating and electricity bill?: No Do you have trouble taking care of your child, family member or friend?: No Do you have trouble with day-to-day activities such as bathing, preparing meals, shopping, managing finances, etc.?: No Are you currently unemployed and looking for a job?: No Are you interested in more education?: No Please select the resources that you would like help with: None Currently or been in a relationship where the following occur: No concerns reported THRIVE Score: 0 AUDIT C Alcohol Use Questionnaire (AUDIT-C) 1. How often do you have a drink containing alcohol?: 2-4 times a month 2. How many drinks containing alcohol do you have on a typical day when you are drinking?: 1 or 2 3. How often do you have six or more drinks on one occasion?: Never Total Score: 2 CORINNE-7 AMB Questionnaire CORINNE-7 Date CORINNE - 7 assessed: 12/12/24 Feeling nervous, anxious, or on edge: 0 = Not at all Not being able to stop or control worryin = Not at all Worrying too much about different things: 0 = Not at all Trouble relaxin = Not at all Being so restless that it is hard to sit still: 0 = Not at all Becoming easily annoyed or irritable: 0 = Not at all Feeling afraid as if something awful might happen: 0 = Not at all Total CORINNE-7 score (0-4 normal; 5-9 mild; 10-14 moderate; 15-21 severe): 0 Source: Developed by Drs. Peter Casas, Joslyn Aparicio, Harmeet Coleman and colleagues, with an educational lester from [employer]. Physical exam (Primary Care) Vital Signs: Last Vital Signs Temp 97.1 F 12/12/24 10:16 Pulse 66 12/12/24 10:16 BP 120/60 12/12/24 10:16 Pulse Ox 97 12/12/24 10:16 Oxygen Delivery Method Room Air 12/12/24 10:16 BMI result Body Mass Index 28.5 Tobacco/Smoking Status: Tobacco use Status Tobacco use date assessed 12/12/24 12/12/24 10:27 Patient Tobacco Use Status Never used Tobacco 12/12/24 10:27 e-Cigarette/Vaping Use Never Used 12/12/24 10:27 PHQ-9: PHQ-9 Score PHQ-9: Total score 0 12/12/24 10:27 Depression Screening Interpretation: Negative Thrive Assessment: Date of Thrive Assessment Date Thrive assessed 12/06/24 12/12/24 10:27 Currently or been in a relationship where the following occur: No concerns reported Results AMB Hemoglobin A1c AMB Hemoglobin A1c 6.3 % Last Edit by MIGUELITO Atwood on 12/12/24 10:34 Results Reviewed Results Reviewed: Laboratory Last Values Hgb A1c (Clinic) 6.3 % (4.0-6.0) H 12/12/24 10:15 Coding Level of Care Code Est Pt Level 4 (89355) Complex EM visit Add On G2211 Diagnoses Type 2 diabetes mellitus without complications E11.9 Erectile dysfunction N52.9 Generalized anxiety disorder F41.1 Assessment & Plan Assessment & Plan (1) Type 2 diabetes mellitus without complications: Code(s): E11.9 - Type 2 diabetes mellitus without complications Category: Medical Plan: A1c in range. Continue current med (2) Erectile dysfunction: Code(s): N52.9 - Male erectile dysfunction, unspecified Category: Medical Plan: Meds ordered (3) Generalized anxiety disorder: Code(s): F41.1 - Generalized anxiety disorder Category: Medical Plan: Continue Sertraline Plan History of Present Illness - The patient is a 69-year-old male presenting for a wellness visit and management of chronic conditions. - Diabetes mellitus: The patient's hemoglobin A1c is well-controlled at 6%, indicating effective management of diabetes. - Erectile dysfunction: The patient requested a prescription for sildenafil (Viagra), which was agreed upon during the visit. 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 Review of Systems - General: Reports feeling well overall. - Gastrointestinal: Denies abdominal pain. Physical Exam General: Cooperative and healthy appearing Nutritional Appearance: Well nourished Orientation/consciousness: Patient oriented x3 Limitations: No limitations Head: Normal to inspection General: Appearance normal, both eyes and all related structures Neck: Normal visual inspection Chest: Normal palpation of entire chest wall Respiratory: N ormal respiratory effort Neurology: Patient oriented x3, able to perform all activities of daily living, including playing golf. Results - Labs: Hemoglobin A1c is 6%. Plan 1. Diabetes Mellitus - Continue monitoring hemoglobin A1c levels to ensure diabetes remains well- controlled. 2. Erectile Dysfunction - Prescribe sildenafil (Viagra) as requested by the patient. Discussion Notes During the visit, we discussed the patient's well-controlled diabetes, with a hemoglobin A1c of 6%. The patient requested a prescription for sildenafil (Viagra) for erectile dysfunction, which I agreed to provide. Patient Instructions - Continue regular monitoring of blood glucose levels and maintain current diabetes management plan. - Take sildenafil (Viagra) as prescribed for erectile dysfunction. Orders: Orders AMB Hemoglobin A1c Today E11.9 - Type 2 diabetes mellitus without complications Basic Metabolic Panel Today E11.9 - Type 2 diabetes mellitus without complications, F41.1 - Generalized anxiety disorder, N52.9 - Male erectile dysfunction, unspecified Lipid Panel Today E11.9 - Type 2 diabetes mellitus without complications, F41.1 - Generalized anxiety disorder, N52.9 - Male erectile dysfunction, unspecified Liver Panel Today E11.9 - Type 2 diabetes mellitus without complications, F41.1 - Generalized anxiety disorder, N52.9 - Male erectile dysfunction, unspecified Complete Blood Count no Diff Today E11.9 - Type 2 diabetes mellitus without complications, F41.1 - Generalized anxiety disorder, N52.9 - Male erectile dysfunction, unspecified Thyroid Stimulating Hormone Today E11.9 - Type 2 diabetes mellitus without complications, F41.1 - Generalized anxiety disorder, N52.9 - Male erectile dysfunction, unspecified UA and rflx microscopic Today E11.9 - Type 2 diabetes mellitus without complications, F41.1 - Generalized anxiety disorder, N52.9 - Male erectile dysfunction, unspecified Microalbumin, Random (w Creat) Today E11.9 - Type 2 diabetes mellitus without complications, F41.1 - Generalized anxiety disorder, N52.9 - Male erectile dysfunction, unspecified PSA,Total (Free>4and<10) Today E11.9 - Type 2 diabetes mellitus without complications, F41.1 - Generalized anxiety disorder, N52.9 - Male erectile dysfunction, unspecified Medications: Refilled sildenafil (Viagra) administer 30 minutes to 4 hours before activity 100 mg PO DAILY PRN 8 tabs 0RF sexual activity
[2024-12-12 10:16] VITALS: BP 120/60; PULSE 66; TEMP 36.2; O2SAT 97; BMI 28.5
== END 2024-12-12 10:40 | disposition home or self-care (01) ==
LOC: HO.HMCH 10:07
PROVIDERS: PCP Internal Medicine; Visit Provider Internal Medicine
DX: E11.9 Type 2 diabetes mellitus without complications (principal); N52.9 Male erectile dysfunction, unspecified; F41.1 Generalized anxiety disorder

== ENCOUNTER → 2024-12-12 10:07 | Outpatient (BNVA) | payer MEDICARE, OTHER, SELFPAY | PROVIDERS: PCP Internal Medicine; Visit Provider Internal Medicine | DX: E11.9 Type 2 diabetes mellitus without complications (principal); F41.1 Generalized anxiety disorder; N52.9 Male erectile dysfunction, unspecified | CPT/HCPCS: 83036; 99212 ==

== ENCOUNTER 2024-12-16 08:04 | Outpatient (REF) | payer MEDICARE, OTHER, SELFPAY ==
[2024-12-16 10:17] LABS: Hematocrit 44.9 % (42.0-52.0); Hemoglobin 14.8 g/dl (14.0-18.0); Mean Corpuscular HGB Conc 33.0 g/dl (31.0-36.0); Mean Corpuscular Hemoglobin 30.5 pg (27.0-33.0); Mean Corpuscular Volume 92.6 fL (80.0-98.0); NRBC Abs Auto 0.000 X10*3/uL (0.0-0.012); NRBC Pct Auto 0.0 /100WBC (0.0-0.2); Platelet Count 174 X10*3/uL (160-400); Red Blood Count 4.85 X10*6/uL (4.60-5.80); White Blood Count 6.5 X10*3/uL (4.8-10.8)
[2024-12-16 10:27] LABS: Appearance Urine Clear; Glucose Urine UA Negative (Negative); PH 5.5 (5.0-9.0); Specific Gravity - Urine 1.020 (1.005-1.025)
[2024-12-16 11:04] LABS: Alanine Aminotransferase 23 U/L (0-40); Albumin Level 4.1 g/dL (3.5-5.0); Alkaline Phosphatase 78 U/L (39-117); Anion Gap 11 (12-20); Aspartate Amino Transferase 24 U/L (5-37); Blood Urea Nitrogen 24 mg/dL (9-16); Calcium 8.6 mg/dL (8.4-10.2); Carbon Dioxide 23 mmol/L (22-29); Chloride 111 mmol/L (96-108); Cholesterol 170 mg/dL (<200); Estimated Glomerular Filt Rate > 60; HDL Cholesterol 45 mg/dL (>40); Potassium 4.1 mmol/L (3.3-5.1); Sodium 141 mmol/L (135-145); Total Protein 7.1 g/dL (6.5-8.0); Triglycerides 167 mg/dL (<150)
[2024-12-16 11:05] LABS: Thyroid Stimulating Hormone 3.60 uIU/mL (0.32-4.0)
[2024-12-16 11:06] LABS: PSA,Total (Free>4and<10) 2.14 ng/mL (0.00-4.00)
== END 2024-12-16 08:05 | disposition home or self-care (01) ==
LOC: HO.10HDL 08:04
PROVIDERS: Visit Provider Internal Medicine
DX: F41.1 Generalized anxiety disorder (principal); E11.9 Type 2 diabetes mellitus without complications; N52.9 Male erectile dysfunction, unspecified
CPT/HCPCS: 36415; 80048; 80061; 80076; 81003; 82043; 82570; 84153; 84443; 85027